=== PATIENT | male | born 1975 | race Caucasian/White ===

== ENCOUNTER 2023-06-11 16:52 | Observation (INO) ==
[2023-06-11 17:41] LABS: Basophils # (auto) 0.05 K/uL (0.00-0.20); Basophils % (auto) 0.3 %; Eosinophils # (auto) 0.26 K/uL (0.00-0.50); Eosinophils % (auto) 1.6 %; Hematocrit (blood only) 51.6 % (42.0-52.0); Hemoglobin 17.5 g/dl (14.0-18.0); Immature Granulocytes # (auto) 0.11 K/uL (0.01-0.20); Immature Granulocytes % (auto) 0.7 %; Lymphocytes # (auto) 2.31 K/uL (1.20-3.40); Lymphocytes % (auto) 14.6 %; Mean Corpuscular Hemoglobin 30.4 pg (25.0-34.0); Mean Corpuscular Hgb Conc 33.9 g/dL (32.0-36.0); Mean Corpuscular Volume 89.6 fL (80.0-100.0); Monocytes # (auto) 1.62 K/uL (0.11-0.59); Monocytes % (auto) 10.2 %; Neutrophils # (auto) 11.49 K/uL (1.40-6.50); Neutrophils % (auto) 72.6 %; Platelet Count 355 K/uL (130-400); RDW Coefficient of Variation 12.2 % (11.5-14.5); RDW Standard Deviation 40.1 fL (36.4-46.3); Red Blood Count 5.76 M/uL (4.70-6.10); White Blood Count 15.84 K/ul (4.8-10.8)
[2023-06-11 17:54] LABS: Albumin Globulin Ratio 1.5 (0.9-2); Albumin Level 4.8 gm/dl (3.4-5.0); BUN Creatinine Ratio 7.4 (10-20); Est GFR (African American) 82.7 ml/min; Est GFR (Non-African American) 71.4 ml/min; Globulin 3.1 gm/dl (2.5-4.0); Potassium 3.9 mmol/L (3.5-5.1); Total Protein 7.9 gm/dl (6.0-8.3)
--- NOTE | 2023-06-11 18:15 | Emergency Department Note ---
Impression & Plan Acute cholecystitis ED Provider Note CHIEF COMPLAINT: Right upper abdominal/flank pain HISTORY OF PRESENTING ILLNESS: This is a 48-year-old male who presents to the emergency department by private vehicle with complaint of right upper abdominal and flank pain that started yesterday and has been getting worse today. The patient states that he developed nausea and vomiting and generalized upper abdominal pain 2 days ago. He states that he was having "violent vomiting" and thinks he may have pulled a muscle. He notes that his mother is a nurse and told him he should get checked. He states that the pain has been sharp and occasionally crampy, constant, worse with certain movements and taking in a deep breath, and he rates the pain 4/10. He has not had any vomiting since yesterday morning, and his nausea is improved as well, but he reports decreased appetite and has not eaten any solid food since 4 PM Sunday. He denies any known sick contacts with similar symptoms. He has not had any fevers or chills. He denies any alcohol or marijuana use. He denies any chest pain, chest tightness, shortness of breath, back pain, dizziness or syncope, hemoptysis, diarrhea or constipation, urinary complaints, or unusual rash. REVIEW OF SYSTEMS: A complete 10 point review of systems was reviewed with the patient with pertinent positives and negatives as per history of present illness. All else were negative. PAST MEDICAL HISTORY: No significant past medical or surgical history SOCIAL HISTORY: Lives at home, denies tobacco use ALLERGIES: Reviewed in chart and with the patient PHYSICAL EXAM: CONSTITUTIONAL: Pleasant and cooperative. Nontoxic-appearing and in no acute distress. Well appearing and well nourished. HEENT: Normocephalic, atraumatic. NECK: Supple, full active range of motion without discomfort. RESPIRATORY: Clear to auscultation bilaterally with no wheezing, crackles, rhonchi or stridor. Equal expansion bilaterally. CHEST WALL: Tenderness to palpation in the right anterior lower chest wall/rib cage, reproduces complaint. No erythema, ecchymosis, swelling, or palpable crepitus. CARDIOVASCULAR: Regular rate and rhythm with no murmurs, rubs or gallops. Normal peripheral perfusion. No edema. GASTROINTESTINAL: Tender to palpation in the right upper quadrant, no rebound tenderness or guarding. Abdomen is otherwise nontender, soft and nondistended. No palpable masses or HSM. Bowel sounds present in all quadrants. No CVA tenderness bilaterally. MUSCULOSKELETAL: Full range of motion of all joints without discomfort. INTEGUMENTARY: No rash or other significant dermatologic conditions noted. NEUROLOGIC: Alert and oriented X 4 with normal affect. Normal speech. Normal gait observed. ED COURSE AND MEDICAL DECISION MAKING: CC: Patient presenting with complaint of right upper abdominal/flank pain DIFFERENTIAL DIAGNOSIS: Includes, but not limited to cholecystitis, cholelithiasis, choledocholithiasis, gastroenteritis, gastritis, GERD, peptic ulcer disease, pancreatitis, small bowel obstruction, ureteral stone, hernia, constipation, acute cardiac syndrome, PE, pneumonia, among others. INTERPRETATION OF LABS: Leukocytosis, no anemia, normal platelets, no significant electrolyte abnormalities, normal renal function, normal liver enzymes and lipase. Troponin negative. Elevated D-dimer. UA negative. EKG: Indication was abdominal pain. Shows sinus tachycardia with a rate of 129 bpm, normal intervals, no ST elevation or depression, no ectopy by my interpretation. No previous EKGs available for comparison. MEDICATION RECONCILIATION: I attest that I have personally reviewed the patient's current medication list. INITIAL VITAL SIGNS REVIEW: I reviewed the patient's initial vital signs and interpret them as follows: T: Afebrile; BP: Mildly hypertensive; HR: Mildly tachycardic; RR: Within normal limits; Pulse Ox: Within normal limits on room air. MDM SUMMARY: Initial orders were placed by nursing staff under critical pathway protocols. Patient was evaluated at bedside, history and physical exam performed. He is alert and oriented, in no acute distress, resting calmly in the stretcher. He is afebrile and nontoxic-appearing. He does have tenderness to palpation in the right upper quadrant as well as in the right chest wall. No acute abdomen. Additional orders were placed IV fluid bolus for hydration, chest x-ray, EKG, troponin, and a D-dimer as the patient is noted to be tachycardic and seems to be pleuritic component to his flank pain. The patient declined anything for pain. D-dimer was noted to be elevated. Additional orders placed for CT imaging, CTA of the chest and CT abdomen/pelvis with IV contrast. Cardiac monitoring: An order was placed for continuous cardiac monitoring. The monitor shows a rate of 90 bpm with normal sinus rhythm. Labs and imaging reviewed, labs notable for leukocytosis, normal liver enzymes and lipase. Troponin was negative. Elevated D-dimer. UA negative. Chest x-ray demonstrates cardiomegaly and bibasilar opacities suggestive of atelectasis. CT imaging of the chest showed no acute pulmonary embolism, focal infiltrate, pleural effusion, or pneumothorax. CT abdomen/pelvis showed distended gallbladder with pericholecystic edema consistent with acute cholecystitis. I spoke on the phone with Dr. Baxter, general surgery, who evaluated the patient and will admit. IV Zosyn ordered per Dr. Baxter's request. Patient reassessed throughout ED stay, he has remained hemodynamically stable, afebrile, and tachycardia resolved after IV fluids. His pain remains tolerable without intervention. The patient was updated on all results and plan for admission, all questions were answered to the best of my ability and the patient was agreeable to this plan Patient was stable at the time of admission. Patient discussed with Dr. Brooks, ED attending, who agrees with my assessment, plan, and disposition. The chart was completed utilizing [employer] Speech voice recognition software. Grammatical errors, random word insertions, pronoun errors, and incomplete sentences are an occasional consequence of this system due to software limitations, ambient noise, and hardware issues. Any formal questions or concerns about the content, text, or information contained within the body of this dictation should be directly addressed to the nurse practitioner for clarification. Past Med/Surg History Social History Smoking Status: Never smoker Do You Dip or Chew Tobacco: No; Hx Alcohol Use: No Hx Substance Use: No Preferred Language: Bengali Communication Ability: Effective College Counselor Required: No Beliefs That Will Affect Care: None Current Living Situation: Significant Other Feels Safe at Home: Yes Safety Concerns: Feels Safe At This Time Assistive Devices: Contacts and Glasses Allergies Allergies Allergy/AdvReac Type Severity Reaction Status Date / Time erythromycin base AdvReac Intermediate Diarrhea Verified 06/11/23 18:33 Home Meds Home Medications Medication Instructions Recorded Confirmed Tylenol See Rx Instructions .Route 06/11/23 06/11/23 .COMPLEX PRN Pain Results & Data (ED) Vital Signs Vital Signs - 24 hr 06/11/23 17:11 06/11/23 18:05 06/11/23 18:33 Temperature 36.9 C Temperature Source Temporal Artery Scan Pulse Rate 118 H 102 H 94 H Pulse Rate [Right Finger] Respiratory Rate 18 23 Respiratory Effort / Characteristics Non-Labored Spontaneous Respiratory Depth Normal Respiratory Pattern Regular Blood Pressure 143/98 H 138/98 Blood Pressure [Right Arm] Blood Pressure Mean 113 111 Blood Pressure Mean [Right Arm] Blood Pressure Position Sitting Blood Pressure Position [Right Arm] Pulse Oximetry 95 94 Oxygen Delivery Method Room Air Sepsis Recent Fever Within 48 Hours No Sepsis New/Unexplained Change in Mental Status N/A Sepsis Action Taken by Nursing No Action Required 06/11/23 18:53 06/11/23 20:00 Temperature Temperature Source Pulse Rate Pulse Rate [Right Finger] 101 H 96 H Respiratory Rate 20 20 Respiratory Effort / Characteristics Respiratory Depth Respiratory Pattern Blood Pressure Blood Pressure [Right Arm] 139/78 130/85 Blood Pressure Mean Blood Pressure Mean [Right Arm] 98 100 Blood Pressure Position Blood Pressure Position [Right Arm] Sitting Pulse Oximetry 97 97 Oxygen Delivery Method Room Air Room Air Sepsis Recent Fever Within 48 Hours Sepsis New/Unexplained Change in Mental Status Sepsis Action Taken by Nursing Laboratory Data 06/11/23 17:18 06/11/23 17:18 Lab Results 06/11/23 06/11/23 Range/Units 17:18 19:31 WBC 15.84 H (4.8-10.8) K/ul RBC 5.76 (4.70-6.10) M/uL Hgb 17.5 (14.0-18.0) g/dl Hct 51.6 (42.0-52.0) % MCV 89.6 (80.0-100.0) fL MCH 30.4 (25.0-34.0) pg MCHC 33.9 (32.0-36.0) g/dL RDW Std Deviation 40.1 (36.4-46.3) fL RDW Coeff of [place]acia 12.2 (11.5-14.5) % Plt Count 355 (130-400) K/uL MPV 10.0 (9.4-12.4) fL Immature Gran % (Auto) 0.7 % Neut % (Auto) 72.6 % Lymph % (Auto) 14.6 % [place] % (Auto) 10.2 % Eos % (Auto) 1.6 % Baso % (Auto) 0.3 % Neut # (Auto) 11.49 H (1.40-6.50) K/uL Lymph # (Auto) 2.31 (1.20-3.40) K/uL [place] # (Auto) 1.62 H (0.11-0.59) K/uL Eos # (Auto) 0.26 (0.00-0.50) K/uL Baso # (Auto) 0.05 (0.00-0.20) K/uL Immature Gran # (Auto) 0.11 (0.01-0.20) K/uL D-Dimer 850 H* (0-500) ug/L FEU Sodium 139 (136-145) mmol/L Potassium 3.9 (3.5-5.1) mmol/L Chloride 101 (98-107) mmol/L Carbon Dioxide 29 (21-32) mmol/L Anion Gap 9 (3-11) BUN 9 (6-23) mg/dl Creatinine 1.21 (0.6-1.4) mg/dl Est Cr Clr Drug Dosing 88.0 ml/min Est GFR ( Amer) 82.7 ml/min Est GFR (Non-Af Amer) 71.4 ml/min BUN/Creatinine Ratio 7.4 L (10-20) Glucose 108 H (70-99(Fasting)) mg/dl Calcium 10.0 (8.6-10.3) mg/dl Total Bilirubin 1.0 (0.2-1.0) mg/dl AST 15 (13-39) U/L ALT 19 (7-52) U/L Alkaline Phosphatase 65 (34-104) U/L Troponin I High Sens 9.1 (0-20) pg/ml Total Protein 7.9 (6.0-8.3) gm/dl Albumin 4.8 (3.4-5.0) gm/dl Globulin 3.1 (2.5-4.0) gm/dl Albumin/Globulin Ratio 1.5 (0.9-2) Lipase 21 (11-82) U/L Urine Color Yellow Urine Appearance Clear (Clear) Urine pH 6.5 (4.5-7.5) Ur Specific [place] 1.011 (1.000-1.030) Urine Protein Negative (Negative) Urine Glucose (UA) Negative (Negative) Urine Ketones Negative (Negative) Urine Blood Negative (Negative) Urine Nitrite Negative (Negative) Urine Bilirubin Negative (Negative) Urine Urobilinogen Negative (Negative) Ur Leukocyte Esterase Negative (Negative) Administered Medications Lactated Ringer's (Lr) 1,000 mls @ 100 mls/hr IV .Q10H GERRY Stop: 07/11/23 23:06 Last Infusion: 06/12/23 00:14 Dose: 100 mls/hr Documented By: Infusion: 06/11/23 23:59 Dose: 0 mls/hr Documented By: Admin: 06/11/23 23:22 Dose: 100 mls/hr Documented By: MARCI Discontinued Medications Sodium Chloride (Nss) 1,000 mls @ 999 mls/hr IV .Q1H1M ONE Stop: 06/11/23 19:19 Last Infusion: 06/11/23 19:50 Dose: Infused Documented By: Admin: 06/11/23 18:33 Dose: 999 mls/hr Documented By: CPB Piperacillin Sod/Tazobactam (Sod 4.5 gm/ Dextrose) 100 mls @ 200 mls/hr IV ONE ONE; Protocol Stop: 06/11/23 23:44 Last Infusion: 06/12/23 00:35 Dose: Infused Documented By: Admin: 06/12/23 00:01 Dose: 200 mls/hr Documented By: MARCI Ioversol (Optiray 320 125ml) 117 ml IV ONCE ONE Stop: 06/11/23 20:03 Last Admin: 06/11/23 20:02 Dose: 117 ml Documented By: FERDINAND Imaging Data Radiologist's Impression: Chest X-Ray 06/11/23 18:27 XR chest 1V portable HISTORY: 48 years-old Male right rib pain acute right-sided rib pain COMPARISON: None TECHNIQUE: AP view the chest FINDINGS: Cardiac silhouette is enlarged. Hypoinflation. Right hemidiaphragmatic elevation. No pneumothorax. Bibasilar consolidation with blunting of the costophrenic angles. IMPRESSION: 1. Cardiomegaly with hypoinflation. 2. Right hemidiaphragm elevation with bibasilar opacities suggestive of atelectasis. Pneumonitis could appear similarly. ACT 112: Negative or not required by law. The above report was generated using voice recognition software. It may contain grammatical, syntax or spelling errors. Electronically signed by: Isai Benitez M.D. 06/11/2023 7:07 PM Abdomen/Pelvis CT 06/11/23 18:45 Exam(s): CT ABDOMEN + PELVIS With Contrast IV Amt: 117ML OPTIRAY 320 EXAM: CT Abdomen and Pelvis With Intravenous Contrast CLINICAL HISTORY: Reason for exam: right flank pain. TECHNIQUE: Axial computed tomography images of the abdomen and pelvis with intravenous contrast. CTDI is 64.54 mGy and DLP is 2406.07 mGy-cm. Automated exposure control was utilized for the study. A dose lowering technique was utilized adhering to the principles of ALARA. CONTRAST: Patient received 117ML OPTIRAY 320 of IV contrast COMPARISON: No relevant prior studies available. FINDINGS: Lung bases: Atelectasis at the lung bases. ABDOMEN: Liver: Hepatic steatosis. Gallbladder and bile ducts: Distended gallbladder with pericholecystic edema, concerning for acute cholecystitis. Surgical evaluation recommended. No ductal dilation. Pancreas: Unremarkable. No mass. No ductal dilation. Spleen: Unremarkable. No splenomegaly. Adrenals: Unremarkable. No mass. Kidneys and ureters: Unremarkable. No solid mass. No hydronephrosis. Stomach and bowel: Unremarkable. No obstruction. No mucosal thickening. PELVIS: Appendix: No findings to suggest acute appendicitis. Bladder: Unremarkable. No mass. Reproductive: Unremarkable as visualized. ABDOMEN and PELVIS: Intraperitoneal space: Unremarkable. No free air. No significant fluid collection. Bones/joints: No acute fracture. No dislocation. Soft tissues: Small fat-containing umbilical hernia. Vasculature: Unremarkable. No abdominal aortic aneurysm. Lymph nodes: Unremarkable. No enlarged lymph nodes. IMPRESSION: Distended gallbladder with pericholecystic edema, concerning for acute cholecystitis. Surgical evaluation recommended. Electronically signed by: Marcus Rosas MD 06/11/23 20:24 PM Chest CTA 06/11/23 18:45 Exam(s): CTA CHEST IV Amt: 117ML OPTIRAY 320 EXAM: CT Angiography Chest With Intravenous Contrast CLINICAL HISTORY: Reason for exam: right flank/chest pain, + dimer. TECHNIQUE: Axial computed tomographic angiography images of the chest with intravenous contrast. CTDI is 64.54 mGy and DLP is 2406.07 mGy-cm. Automated exposure control was utilized for the study. A dose lowering technique was utilized adhering to the principles of ALARA. MIP reconstructed images were created and reviewed. COMPARISON: No relevant prior studies available. FINDINGS: Pulmonary arteries: Unremarkable. No acute pulmonary embolism. Aorta: No acute findings. No thoracic aortic aneurysm. Lungs: Atelectasis at the lung bases. No mass. Pleural space: Unremarkable. No focal infiltrate, pleural effusion, or pneumothorax. Heart: Unremarkable. No cardiomegaly. No significant pericardial effusion. No evidence of RV dysfunction. Bones/joints: No acute fracture. No dislocation. Soft tissues: Unremarkable. Lymph nodes: Unremarkable. No enlarged lymph nodes. Upper abdomen: Elevated RIGHT hemidiaphragm. IMPRESSION: 1. No acute pulmonary embolism. 2. No focal infiltrate, pleural effusion, or pneumothorax. Electronically signed by: Marcus Rosas MD 06/11/23 20:17 PM Discharge Plan Visit Data Chief Complaint: Abdominal Pain Stated Complaint: SHARP ABD PAIN, VOMITING, RT FLANK PAIN ED Provider: Mathew Brooks ED Midlevel Provider: Kaitlin Peterson Discharge Problem: Acute cholecystitis Patient Disposition: Admitted As Inpatient Discharge Instructions Interventions: ED Discharge Assessment Last Done: 06/11/23 22:54
[2023-06-11] MEDS: SODIUM CHLORIDE 0.9% 1,000 ML IV ONE (18:33)
[2023-06-11 18:46] LABS: D Dimer 850 ug/L FEU (0-500)
[2023-06-11 18:55] LABS: Troponin I High Sensitivity 9.1 pg/ml (0-20)
--- NOTE | 2023-06-11 19:08 | XRay Report ---
XR chest 1V portable HISTORY: 48 years-old Male right rib pain acute right-sided rib pain COMPARISON: None TECHNIQUE: AP view the chest FINDINGS: Cardiac silhouette is enlarged. Hypoinflation. Right hemidiaphragmatic elevation. No pneumothorax. Bi basilar consolidation with blunting of the costophrenic angles. IMPRESSION: 1. Cardiomegaly with hypoinflation. 2. Right hemidiaphragm elevation with bibasilar opacities suggestive of atelectasis. Pneumonitis coul d appear similarly. ACT 112: Negative or not required by law. The above report was generated using voice recognition software. It may contain grammatical, syntax o r spelling errors. Electronically signed by: Isai Benitez M.D. 06/11/2023 7:07 PM
[2023-06-11 19:49] LABS: Appearance Urine Clear (Clear); Bilirubin Urine Negative (Negative); Blood Urine Negative (Negative); Color Urine Yellow; Glucose Urine UA Negative (Negative); Ketones Urine Negative (Negative); Leukocyte Esterase Urine Negative (Negative); Nitrite Urine Negative (Negative); Protein Urine Negative (Negative); Specific Gravity Urine 1.011 (1.000-1.030); Urobilinogen Urine Negative (Negative); pH Urine 6.5 (4.5-7.5)
[2023-06-11] MEDS: OPTIRAY 320 125ml IV ONE (20:02)
--- NOTE | 2023-06-11 20:18 | CT Scan Report ---
Exam(s): CTA CHEST IV Amt: 117ML OPTIRAY 320 EXAM: CT Angiography Chest With Intravenous Contrast CLINICAL HISTORY: Reason for exam: right flank/chest pain, + dimer. TECHNIQUE: Axial computed tomographic angiography images of the chest with intravenous contrast. CTDI is 64.54 mGy and DLP is 2406.07 mGy-cm. Automated exposure control was utilized for the study. A dose lowering technique was utilized adhering to the principles of ALARA. MIP reconstructed images were created and reviewed. COMPARISON: No relevant prior studies available. FINDINGS: Pulmonary arteries: Unremarkable. No acute pulmonary embolism. Aorta: No acute findings. No thoracic aortic aneurysm. Lungs: Atelectasis at the lung bases. No mass. Pleural space: Unremarkable. No focal infiltrate, pleural effusion, or pneumothorax. Heart: Unremarkable. No cardiomegaly. No significant pericardial effusion. No evidence of RV dysfunction. Bones/joints: No acute fracture. No dislocation. Soft tissues: Unremarkable. Lymph nodes: Unremarkable. No enlarged lymph nodes. Upper abdomen: Elevated RIGHT hemidiaphragm. IMPRESSION: 1. No acute pulmonary embolism. 2. No focal infiltrate, pleural effusion, or pneumothorax. Electronically signed by: Marcus Rosas MD 06/11/23 20:17 PM
--- NOTE | 2023-06-11 20:25 | CT Scan Report ---
Exam(s): CT ABDOMEN + PELVIS With Contrast IV Amt: 117ML OPTIRAY 320 EXAM: CT Abdomen and Pelvis With Intravenous Contrast CLINICAL HISTORY: Reason for exam: right flank pain. TECHNIQUE: Axial computed tomography images of the abdomen and pelvis with intravenous contrast. CTDI is 64.54 mGy and DLP is 2406.07 mGy-cm. Automated exposure control was utilized for the study. A dose lowering technique was utilized adhering to the principles of ALARA. CONTRAST: Patient received 117ML OPTIRAY 320 of IV contrast COMPARISON: No relevant prior studies available. FINDINGS: Lung bases: Atelectasis at the lung bases. ABDOMEN: Liver: Hepatic steatosis. Gallbladder and bile ducts: Distended gallbladder with pericholecystic edema, concerning for acute cholecystitis. Surgical evaluation recommended. No ductal dilation. Pancreas: Unremarkable. No mass. No ductal dilation. Spleen: Unremarkable. No splenomegaly. Adrenals: Unremarkable. No mass. Kidneys and ureters: Unremarkable. No solid mass. No hydronephrosis. Stomach and bowel: Unremarkable. No obstruction. No mucosal thickening. PELVIS: Appendix: No findings to suggest acute appendicitis. Bladder: Unremarkable. No mass. Reproductive: Unremarkable as visualized. ABDOMEN and PELVIS: Intraperitoneal space: Unremarkable. No free air. No significant fluid collection. Bones/joints: No acute fracture. No dislocation. Soft tissues: Small fat-containing umbilical hernia. Vasculature: Unremarkable. No abdominal aortic aneurysm. Lymph nodes: Unremarkable. No enlarged lymph nodes. IMPRESSION: Distended gallbladder with pericholecystic edema, concerning for acute cholecystitis. Surgical evaluation recommended. Electronically signed by: Marcus Rosas MD 06/11/23 20:24 PM
--- NOTE | 2023-06-11 22:23 | Surgery Consultation ---
Date of Consultation June 11, 2023 Assessment & Plan (1) Acute cholecystitis: Assessment: Patient is a 48 years old gentleman who presented to ED with a 2-day history right upper quadrant pain with some nausea and vomiting. The patient feels better no significant abdominal pain. Nausea no vomiting or today. WBC 16,000. CT scan diagnosis of acute cholecystitis. Plan: No emergency surgical indication now . admitted to the hospital. IV fluid, NPO, Iv antibiotic, repeat labs in the morning, U/S study gallbladder tomorrow morning. will Follow up. Patient and patient mom agreed with the Plan. I answered all questions. D/W ER attending. History of Present Illness Reason for Consultation: Acute cholecystitis Requesting Physician: kush Peterson CRNP History of Present Illness CC: Right upper quadrant pain HPI: Patient is a 48 years old gentleman who presented to ED with a 2-day history right upper quadrant pain with some nausea and vomiting. The abdominal pain started on Sunday. the pain was sharp on upper abdomen with nausea and vomiting. 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 pt denies vomiting blood. no fever or chills, no diarrhea, no chest pain. now pt feels much better. no significant abdominal pain now. WBC 16,000, CT scan-diagnosis of acute cholecystitis. Otherwise the patient is a healthy and no significant past medical history. Allergies Allergy/AdvReac Type Severity Reaction Status Date / Time erythromycin base AdvReac Intermediate Diarrhea Verified 06/11/23 18:33 Home Medications Medication Instructions Recorded Confirmed Type Tylenol See Rx Instructions .Route 06/11/23 06/11/23 History .COMPLEX PRN Pain Patient History Social History Smoking Status: Never smoker Feels Safe at Home: Yes Review of Systems Constitutional: as per Subjective / HPI Eyes: as per Subjective / HPI Respiratory: as per Subjective / HPI Cardiovascular: as per Subjective / HPI Gastrointestinal: as per Subjective / HPI Genitourinary: + as per Subjective / HPI Neurologic: as per Subjective / HPI Psychiatric: as per Subjective / HPI Endocrine: as per Subjective / HPI Hematologic / Lymphatic: as per Subjective / HPI Physical Exam Constitutional: WD/WN, vitals as above no distress Eyes: PERRL, conjunctivae normal, anicteric sclerae Neck: trachea midline, no thyromegaly Respiratory: normal respiratory effort, lungs clear to auscultation Cardiovascular: RRR, no murmur, no edema Gastrointestinal (Abdomen): soft, no significant tenderness at abdomen, no rebound pain, no distend, BS +. small umbilical hernia, no tenderness, reducible. Musculoskeletal: no cyanosis or clubbing, extremities motor strength 5/5 Neurologic: patellar DTR's 2+ bilat, sensation intact Psychiatric: A+Ox3, euthymic affect Results & Data Vital Signs (Past 12 Hours) Vital Signs Temp Pulse Pulse Resp BP BP Pulse Ox 06/11/23 20:00 96 H 20 130/85 97 06/11/23 18:53 101 H 20 139/78 97 06/11/23 18:33 94 H 06/11/23 18:05 102 H 23 138/98 94 06/11/23 17:11 36.9 C 118 H 18 143/98 H 95 O2 Del Method 06/11/23 20:00 Room Air 06/11/23 18:53 Room Air 06/11/23 18:33 06/11/23 18:05 06/11/23 17:11 Room Air Laboratory Results Lab Results 06/11/23 06/11/23 Range/Units 17:18 19:31 WBC 15.84 H (4.8-10.8) K/ul RBC 5.76 (4.70-6.10) M/uL Hgb 17.5 (14.0-18.0) g/dl Hct 51.6 (42.0-52.0) % MCV 89.6 (80.0-100.0) fL MCH 30.4 (25.0-34.0) pg MCHC 33.9 (32.0-36.0) g/dL RDW Std Deviation 40.1 (36.4-46.3) fL RDW Coeff of Gracia 12.2 (11.5-14.5) % Plt Count 355 (130-400) K/uL MPV 10.0 (9.4-12.4) fL Immature Gran % (Auto) 0.7 % Neut % (Auto) 72.6 % Lymph % (Auto) 14.6 % [place] % (Auto) 10.2 % Eos % (Auto) 1.6 % Baso % (Auto) 0.3 % Neut # (Auto) 11.49 H (1.40-6.50) K/uL Lymph # (Auto) 2.31 (1.20-3.40) K/uL [place] # (Auto) 1.62 H (0.11-0.59) K/uL Eos # (Auto) 0.26 (0.00-0.50) K/uL Baso # (Auto) 0.05 (0.00-0.20) K/uL Immature Gran # (Auto) 0.11 (0.01-0.20) K/uL D-Dimer 850 H* (0-500) ug/L FEU Sodium 139 (136-145) mmol/L Potassium 3.9 (3.5-5.1) mmol/L Chloride 101 (98-107) mmol/L Carbon Dioxide 29 (21-32) mmol/L Anion Gap 9 (3-11) BUN 9 (6-23) mg/dl Creatinine 1.21 (0.6-1.4) mg/dl Est Cr Clr Drug Dosing 88.0 ml/min Est GFR ( Amer) 82.7 ml/min Est GFR (Non-Af Amer) 71.4 ml/min BUN/Creatinine Ratio 7.4 L (10-20) Glucose 108 H (70-99(Fasting)) mg/dl Calcium 10.0 (8.6-10.3) mg/dl Total Bilirubin 1.0 (0.2-1.0) mg/dl AST 15 (13-39) U/L ALT 19 (7-52) U/L Alkaline Phosphatase 65 (34-104) U/L Troponin I High Sens 9.1 (0-20) pg/ml Total Protein 7.9 (6.0-8.3) gm/dl Albumin 4.8 (3.4-5.0) gm/dl Globulin 3.1 (2.5-4.0) gm/dl Albumin/Globulin Ratio 1.5 (0.9-2) Lipase 21 (11-82) U/L Urine Color Yellow Urine Appearance Clear (Clear) Urine pH 6.5 (4.5-7.5) Ur Specific [place] 1.011 (1.000-1.030) Urine Protein Negative (Negative) Urine Glucose (UA) Negative (Negative) Urine Ketones Negative (Negative) Urine Blood Negative (Negative) Urine Nitrite Negative (Negative) Urine Bilirubin Negative (Negative) Urine Urobilinogen Negative (Negative) Ur Leukocyte Esterase Negative (Negative) Diagnostic Findings Exam(s): CT ABDOMEN + PELVIS With Contrast IV Amt: 117ML OPTIRAY 320 EXAM: CT Abdomen and Pelvis With Intravenous Contrast CLINICAL HISTORY: Reason for exam: right flank pain. TECHNIQUE: Axial computed tomography images of the abdomen and pelvis with intravenous contrast. CTDI is 64.54 mGy and DLP is 2406.07 mGy-cm. Automated exposure control was utilized for the study. A dose lowering technique was utilized adhering to the principles of ALARA. CONTRAST: Patient received 117ML OPTIRAY 320 of IV contrast COMPARISON: No relevant prior studies available. FINDINGS: Lung bases: Atelectasis at the lung bases. ABDOMEN: Liver: Hepatic steatosis. Gallbladder and bile ducts: Distended gallbladder with pericholecystic edema, concerning for acute cholecystitis. Surgical evaluation recommended. No ductal dilation. Pancreas: Unremarkable. No mass. No ductal dilation. Spleen: Unremarkable. No splenomegaly. Adrenals: Unremarkable. No mass. Kidneys and ureters: Unremarkable. No solid mass. No hydronephrosis. Stomach and bowel: Unremarkable. No obstruction. No mucosal thickening. PELVIS: Appendix: No findings to suggest acute appendicitis. Bladder: Unremarkable. No mass. Reproductive: Unremarkable as visualized. ABDOMEN and PELVIS: Intraperitoneal space: Unremarkable. No free air. No significant fluid collection. Bones/joints: No acute fracture. No dislocation. Soft tissues: Small fat-containing umbilical hernia. Vasculature: Unremarkable. No abdominal aortic aneurysm. Lymph nodes: Unremarkable. No enlarged lymph nodes. IMPRESSION: Distended gallbladder with pericholecystic edema, concerning for acute cholecystitis. Surgical evaluation recommended. Electronically signed by: Marcus Rosas MD 06/11/23 20:24 PM Exam(s): CTA CHEST IV Amt: 117ML OPTIRAY 320 EXAM: CT Angiography Chest With Intravenous Contrast CLINICAL HISTORY: Reason for exam: right flank/chest pain, + dimer. TECHNIQUE: Axial computed tomographic angiography images of the chest with intravenous contrast. CTDI is 64.54 mGy and DLP is 2406.07 mGy-cm. Automated exposure control was utilized for the study. A dose lowering technique was utilized adhering to the principles of ALARA. MIP reconstructed images were created and reviewed. COMPARISON: No relevant prior studies available. FINDINGS: Pulmonary arteries: Unremarkable. No acute pulmonary embolism. Aorta: No acute findings. No thoracic aortic aneurysm. Lungs: Atelectasis at the lung bases. No mass. Pleural space: Unremarkable. No focal infiltrate, pleural effusion, or pneumothorax. Heart: Unremarkable. No cardiomegaly. No significant pericardial effusion. No evidence of RV dysfunction. Bones/joints: No acute fracture. No dislocation. Soft tissues: Unremarkable. Lymph nodes: Unremarkable. No enlarged lymph nodes. Upper abdomen: Elevated RIGHT hemidiaphragm. IMPRESSION: 1. No acute pulmonary embolism. 2. No focal infiltrate, pleural effusion, or pneumothorax. Electronically signed by: Marcus Rosas MD 06/11/23 20:17 PM XR chest 1V portable HISTORY: 48 years-old Male right rib pain acute right-sided rib pain COMPARISON: None TECHNIQUE: AP view the chest FINDINGS: Cardiac silhouette is enlarged. Hypoinflation. Right hemidiaphragmatic elevation. No pneumothorax. Bibasilar consolidation with blunting of the costophrenic angles. IMPRESSION: 1. Cardiomegaly with hypoinflation. 2. Right hemidiaphragm elevation with bibasilar opacities suggestive of atelectasis. Pneumonitis could appear similarly. ACT 112: Negative or not required by law. The above report was generated using voice recognition software. It may contain grammatical, syntax or spelling errors. Electronically signed by: Isai Benitez M.D. 06/11/2023 7:07 PM
[2023-06-11] MEDS ORDERED: HYDROmorphone INJ 0.5 MG/0.5 ML SYR IV PRN (23:07)
[2023-06-11] MEDS ORDERED: ACETAMINOPHEN PRN (23:07)
[2023-06-11] MEDS ORDERED: oxyCODONE/ACETAMINOPHEN 5mg/325mg TAB PO PRN (23:07)
[2023-06-11] MEDS: LACTATED RINGER'S 1,000 ML IV SCH (23:22)
[2023-06-12] MEDS: PIPERACILLIN/TAZOBACTAM 4.5 GM in DEXTROSE 5% MINI-B 100 ML IV ONE (00:01)
[2023-06-12] MEDS: PIPERACILLIN/TAZOBACTAM 4.5 GM in DEXTROSE 5% MINI-B 100 ML IV SCH (05:45)
[2023-06-12 06:12] LABS: Basophils # (auto) 0.06 K/uL (0.00-0.20); Basophils % (auto) 0.5 %; Eosinophils # (auto) 0.27 K/uL (0.00-0.50); Eosinophils % (auto) 2.1 %; Hematocrit (blood only) 43.3 % (42.0-52.0); Hemoglobin 14.9 g/dl (14.0-18.0); Immature Granulocytes # (auto) 0.08 K/uL (0.01-0.20); Immature Granulocytes % (auto) 0.6 %; Lymphocytes # (auto) 1.65 K/uL (1.20-3.40); Lymphocytes % (auto) 12.6 %; Mean Corpuscular Hemoglobin 30.2 pg (25.0-34.0); Mean Corpuscular Hgb Conc 34.4 g/dL (32.0-36.0); Mean Corpuscular Volume 87.8 fL (80.0-100.0); Mean Platelet Volume 9.6 fL (9.4-12.4); Monocytes # (auto) 1.27 K/uL (0.11-0.59); Monocytes % (auto) 9.7 %; Neutrophils # (auto) 9.72 K/uL (1.40-6.50); Neutrophils % (auto) 74.5 %; Platelet Count 254 K/uL (130-400); RDW Coefficient of Variation 12.1 % (11.5-14.5); RDW Standard Deviation 39.3 fL (36.4-46.3); Red Blood Count 4.93 M/uL (4.70-6.10); White Blood Count 13.05 K/ul (4.8-10.8)
[2023-06-12 06:29] LABS: Albumin Globulin Ratio 1.6 (0.9-2); Albumin Level 3.9 gm/dl (3.4-5.0); BUN Creatinine Ratio 11.3 (10-20); Bilirubin,Total 0.9 mg/dl (0.2-1.0); Calcium 8.6 mg/dl (8.6-10.3); Creatinine Clr Calc Pharmacy 109.6 ml/min; Est GFR (African American) 108.1 ml/min; Est GFR (Non-African American) 93.2 ml/min; Globulin 2.5 gm/dl (2.5-4.0); Potassium 3.9 mmol/L (3.5-5.1); Total Protein 6.4 gm/dl (6.0-8.3)
--- NOTE | 2023-06-12 08:19 | Electrocardiogram Report ---
Test Reason : Blood Pressure : / mmHG Vent. Rate : 129 BPM Atrial Rate : 129 BPM P-R Int : 154 ms QRS Dur : 068 ms QT Int : 296 ms P-R-T Axes : 025 -23 029 degrees QTc Int : 433 ms Sinus tachycardia Poor R wave progression, consider anterior ME vs. lead placement vs. LVH Abnormal ECG No previous ECGs available Confirmed by Blayne Olsen ([id number]) on 06/12/2023 8:18:42 AM Referred By: REFERRED SELF Confirmed By:Blayne Olsen
[2023-06-12] MEDS ORDERED: ONDANSETRON INJ 2 MG/ML 2 ML VIAL IV PRN ×2 (09:02→15:32)
--- NOTE | 2023-06-12 09:34 | Ultrasound Report ---
ABDOMINAL ULTRASOUND, RIGHT UPPER QUADRANT HISTORY: Acute quadrant abdominal pain RUQ pain, to R/O acute cholecystitis. COMPARISON: CT 06/11/2023 FINDINGS: Limited exam secondary to obscuring bowel gas. Pancreas: The pancreas is partially obscured by bowel gas. Liver: Unremarkable. Gallbladder: Cholelithiasis with stones measuring up to 1.1 cm. Probable trace layering sludge. Borde rline gallbladder wall thickening measuring up to 3 mm. Mild pericholecystic edema. The sonographic M urphy sign was reported as negative. CBD: 0.5 cm. Right kidney: No hydronephrosis. IMPRESSION: 1. Cholelithiasis with mild gallbladder wall thickening and pericholecystic edema is suspicious for a cute cholecystitis. The sonographic Watson's sign however was reported as negative. 2. No biliary ductal dilation. ACT 112: Negative or not required by law. Electronically signed by: Isai Benitez M.D. 06/12/2023 9:33 AM
--- NOTE | 2023-06-12 10:31 | Surgery Progress Note ---
Date of Service June 12, 2023 Assessment & Plan (1) Acute cholecystitis: Plan: 48 year-old male with 2.5 day history of upper abdominal pain with nausea and vomiting. no fevers or chills. CT scan with acute cholecystitis, wbc 15.8k now 13k. Ultrasound with cholelihtiasis and gallbladder wall thickening and pericholecystic fluid consistent with acute cholecystitis. Abdomen is soft but there is some voluntary guarding on deep palpation. afebrile, hemodynamically stable. Plan: Discussed with patient and at length about patients imaging and symptoms consistent with acute cholecystitis. Discussed laparoscopic cholecystectomy pros and cons as well as procedure risks and expected recovery time and restrictions. Patient anxious about surgery/anesthesia as well as missing work. Discussed option of antibiotics and outpatient elective surgery in 4-6 weeks once gallbladder inflammation has subsided however discussed possibility of another acute episode and repeat ER visit/admission. After discussion, patient electing to proceed with surgery now. Informed consent obtained. Continue npo continue IV Zosyn Continue pain management as needed Discussed with Dr. Ramos who is to evaluate patient separately preoperatively. Admission and Anticipated Discharge Date Admission Date: June 11, 2023 Supervising Physician Co-Signing Physician Notes I have seen and examined the patient agree with the above assessment and plan. In brief, he has been having right upper quadrant abdominal pain since Sunday morning. Ultrasound with what appears to be acute cholecystitis. Tender to palpation in the right upper quadrant. We discussed the risks and benefits of a laparoscopic cholecystectomy with him. All his questions were answered, he is agreeable to proceed. Will take him to the operating room at the earliest convenience. Subjective feeling better today than yesterday, pain is improved as well as the nausea very anxious about surgery and missing work Physical Exam Constitutional: WD/WN, vitals as above cooperative and comfortable; no acute distress and not ill appearing Respiratory: normal respiratory effort, lungs clear to auscultation Cardiovascular: RRR, no murmur, no edema Gastrointestinal (Abdomen): Inspection/Auscultation: abdomen normal to inspection; abdomen not distended Percussion/Palpation: + abdomen tender (some tenderness in RUQ, negative Watson's) and abdomen soft; no guarding and abdomen not firm Skin: no rashes, warm and dry no jaundice Psychiatric: Orientation: alert and oriented x 3 Results & Data Vital Signs (Past 12 Hours) Vital Signs Temp Pulse Resp BP Pulse Ox O2 Del Method 06/12/23 07:12 36.8 C 103 H 16 147/85 H 92 Room Air 06/11/23 23:00 37.3 C 88 20 139/90 96 Room Air 06/11/23 23:00 37.3 C 88 20 139/90 96 Room Air Laboratory Results 06/12/23 06/11/23 06/11/23 Range/Units 05:51 19:31 17:18 WBC 13.05 H 15.84 H (4.8-10.8) K/ul RBC 4.93 5.76 (4.70-6.10) M/uL Hgb 14.9 17.5 (14.0-18.0) g/dl Hct 43.3 51.6 (42.0-52.0) % MCV 87.8 89.6 (80.0-100.0) fL MCH 30.2 30.4 (25.0-34.0) pg MCHC 34.4 33.9 (32.0-36.0) g/dL RDW Std Deviation 39.3 40.1 (36.4-46.3) fL RDW Coeff of Gracia 12.1 12.2 (11.5-14.5) % Plt Count 254 355 (130-400) K/uL MPV 9.6 10.0 (9.4-12.4) fL Immature Gran % (Auto) 0.6 0.7 % Neut % (Auto) 74.5 72.6 % Lymph % (Auto) 12.6 14.6 % [place] % (Auto) 9.7 10.2 % Eos % (Auto) 2.1 1.6 % Baso % (Auto) 0.5 0.3 % Neut # (Auto) 9.72 H 11.49 H (1.40-6.50) K/uL Lymph # (Auto) 1.65 2.31 (1.20-3.40) K/uL [place] # (Auto) 1.27 H 1.62 H (0.11-0.59) K/uL Eos # (Auto) 0.27 0.26 (0.00-0.50) K/uL Baso # (Auto) 0.06 0.05 (0.00-0.20) K/uL Immature Gran # (Auto) 0.08 0.11 (0.01-0.20) K/uL D-Dimer 850 H* (0-500) ug/L FEU Sodium 138 139 (136-145) mmol/L Potassium 3.9 3.9 (3.5-5.1) mmol/L Chloride 104 101 (98-107) mmol/L Carbon Dioxide 26 29 (21-32) mmol/L Anion Gap 8 9 (3-11) BUN 11 9 (6-23) mg/dl Creatinine 0.97 1.21 (0.6-1.4) mg/dl Est Cr Clr Drug Dosing 109.6 88.0 ml/min Est GFR ( Amer) 108.1 82.7 ml/min Est GFR (Non-Af Amer) 93.2 71.4 ml/min BUN/Creatinine Ratio 11.3 7.4 L (10-20) Glucose 101 H 108 H (70-99(Fasting)) mg/dl Calcium 8.6 10.0 (8.6-10.3) mg/dl Total Bilirubin 0.9 1.0 (0.2-1.0) mg/dl AST 14 15 (13-39) U/L ALT 14 19 (7-52) U/L Alkaline Phosphatase 50 65 (34-104) U/L Troponin I High Sens 9.1 (0-20) pg/ml Total Protein 6.4 7.9 (6.0-8.3) gm/dl Albumin 3.9 4.8 (3.4-5.0) gm/dl Globulin 2.5 3.1 (2.5-4.0) gm/dl Albumin/Globulin Ratio 1.6 1.5 (0.9-2) Lipase 14 21 (11-82) U/L Urine Color Yellow Urine Appearance Clear (Clear) Urine pH 6.5 (4.5-7.5) Ur Specific [place] 1.011 (1.000-1.030) Urine Protein Negative (Negative) Urine Glucose (UA) Negative (Negative) Urine Ketones Negative (Negative) Urine Blood Negative (Negative) Urine Nitrite Negative (Negative) Urine Bilirubin Negative (Negative) Urine Urobilinogen Negative (Negative) Ur Leukocyte Esterase Negative (Negative) Diagnostic Findings ABDOMINAL ULTRASOUND, RIGHT UPPER QUADRANT HISTORY: Acute quadrant abdominal pain RUQ pain, to R/O acute cholecystitis. COMPARISON: CT 06/11/2023 FINDINGS: Limited exam secondary to obscuring bowel gas. Pancreas: The pancreas is partially obscured by bowel gas. Liver: Unremarkable. Gallbladder: Cholelithiasis with stones measuring up to 1.1 cm. Probable trace layering sludge. Borderline gallbladder wall thickening measuring up to 3 mm. Mild pericholecystic edema. The sonographic Watson sign was reported as negative. CBD: 0.5 cm. Right kidney: No hydronephrosis. IMPRESSION: 1. Cholelithiasis with mild gallbladder wall thickening and pericholecystic edema is suspicious for acute cholecystitis. The sonographic Watson's sign however was reported as negative. 2. No biliary ductal dilation.
[2023-06-12] MEDS ORDERED: fentaNYL citrate PF 100 MCG/2 ML VIAL ONE ×2 (11:54→13:16)
[2023-06-12] MEDS ORDERED: MIDAZOLAM HCL 1 MG/ML 2ML VIAL ONE (11:54)
[2023-06-12] MEDS ORDERED: ROCURONIUM BROMIDE 10 MG/ML 5 ML VIAL IV ONE (12:02)
[2023-06-12] MEDS ORDERED: LIDOCAINE 2% 2 ML VIAL/AMP(20MG/ML) INFIL ONE (12:02)
[2023-06-12] MEDS ORDERED: GLYCOPYRROLATE 0.2 MG/ML VIAL ONE (12:02)
[2023-06-12] MEDS ORDERED: PROPOFOL IV EMULSION 10 MG/ML 20 ML VIAL IV ONE ×2 (12:02→13:45)
[2023-06-12] MEDS ORDERED: ONDANSETRON INJ 2 MG/ML 2 ML VIAL ONE (12:02)
[2023-06-12] MEDS ORDERED: DEXAMETHASONE SOD INJ 4 MG/ML VIAL ONE (12:02)
--- NOTE | 2023-06-12 12:38 | History & Physical Bridge Note ---
Date of Service June 12, 2023 History & Physical Bridge Note I have examined the patient, reviewed the History & Physical and in the interval since the performance of the History & Physical I have noted the following changes of clinical significance: no changes noted
[2023-06-12] MEDS ORDERED: diphenhydrAMINE 50 MG/ML VIAL ONE (13:04)
[2023-06-12] MEDS ORDERED: KETOROLAC 30 MG/ML VIAL ONE (13:09)
[2023-06-12] MEDS ORDERED: SUGAMMADEX SODIUM 200 MG/2 ML VIAL IV ONE (13:10)
[2023-06-12] MEDS ORDERED: DexMEDEtomidine HCL IV 100 MCG/ML VIAL IV ONE (13:11)
[2023-06-12] MEDS: BUPIVACAINE/EPINEPHRINE 0.5% MPF 1:200,000 30 ML VIAL ONE (13:58)
--- NOTE | 2023-06-12 14:00 | Post Operative Brief Note ---
Immediate Post Op Note v1 Date of Surgery June 12, 2023 Pre & Post Diagnosis Operation Date: 06/12/23 07:00 Pre-Op Diagnosis: Acute cholecystitis Post-Op Diagnosis: Acute cholecystitis I identified the patient and participated in the time-out.: Yes Procedure Operation Date: 06/12/23 07:00 Actual Procedures p Laparoscopic Cholecystectomy(Not Applicable) - Flash Ramos MD Surgeon Flash Ramos MD Grocery Store Associate DOMENIC Lui assisted with tissue retraction, camera op, closure Estimated Blood Loss 5 Findings Consistent with Post-Op Diagnosis Drains Juan-Landry Drain
--- NOTE | 2023-06-12 14:01 | Operative Report ---
Post Operative Report Pre & Post Diagnosis Operation Date: 06/12/23 07:00 Pre-Op Diagnosis: Acute cholecystitis Post-Op Diagnosis: Acute cholecystitis I identified the patient and participated in the time-out.: Yes Procedure Operation Date: 06/12/23 07:00 Actual Procedures p Laparoscopic Cholecystectomy(Not Applicable) - Flash Ramos MD Surgeon Flash Ramos MD Counselling Psychologist DOMENIC Lui assisted with tissue retraction, camera op, closure Estimated Blood Loss 5 Findings Consistent with Post-Op Diagnosis Severe gangrenous acute cholecystitis Specimens Gallbladder Drains 15 [place] round AMINAH drain Anesthesia Type General Complications No immediate complications Description of Procedure The patient was taken to the operating room, and placed supine on the operating table. A timeout was performed, perioperative antibiotics were administered, SCD boots were placed. After adequate anesthesia and analgesia was obtained, the abdomen was prepped and draped in the normal sterile fashion. Local anesthetic was injected into and around the proposed incision sites. An incision was made with a 15 blade scalpel in the supraumbilical region and carried down to the level of the fascia. The fascia was grasped with a trach hook, and a varies needle was used to enter the abdominal cavity. The abdomen was insufflated to a pressure of 15 mmHg, and a 11 mm trocar was placed in this location. A 10 mm, 30 degree laparoscope was placed into the abdominal cavity, and the abdomen was surveyed. The gallbladder was quite distended and taut, and demonstrated significant areas of gangrene. Two 5 mm trochars were placed along the right costal margin, and one 5 mm trocar was placed in the subxiphoid region under direct visualization. The gallbladder was drained with an 18-gauge aspiration needle. The gallbladder was grasped and retracted cephalad and laterally, exposing the triangle of [place]. Dissection began in the triangle with a combination of blunt dissection with the [place] dissector, and judicious use of the hook cautery. The cystic duct and cystic artery were dissected free circumferentially, and a critical view of safety was obtained. The cystic duct and cystic artery were clipped and transected, and the gallbladder was removed from the gallbladder fossa with the hook cautery. The camera was switched to a 5 mm, the gallbladder was placed in an Endo Catch bag, and removed via the supraumbilical port site. The camera was switched back to the 10 mm camera, and the abdomen was surveyed again. Hemostasis was checked and attended, and was excellent. A 15 [place] round AMINAH drain was placed through the lateral incision and was secured in place with 2-0 silk suture. The abdomen was copiously irrigated and suctioned free. Again hemostasis was checked and was excellent. All trochars were removed under direct visualization. The abdomen was desufflated. The fascia in the 11 mm port site was closed with a 0 Vicryl suture. The skin was closed with a running 4-0 Monocryl subcuticular stitch. Dermabond was applied. The patient tolerated the procedure without complication, and was transferred in stable condition to the PACU. All instrument, needle, and sponge counts were correct at the end of the case. My marketing assistant retail division was necessary throughout the procedure for tissue retraction, possible camera operation, and closure of the wounds. I understand that section 1842(b)(7)(D) of the Social Security act generally prohibits Medicare physician fee schedule payment for the services of assistants at surgery in teaching hospitals when qualified residents are available to furnish such services. I certify that the services for which payment is claimed were medically necessary and that no qualified resident was available to perform the services. I further understand that these services are subject to postpayment review by the Medicare carrier. I attest to the content of the Intraoperative Record and any orders documented therein. Any exceptions are noted below.
--- NOTE | 2023-06-12 15:17 | Anesthesiology Consultation ---
Date of Service June 12, 2023 Assessment & Plan Chart Review Chart Review: Acceptable Risk for Surgery and Patient NOT seen in Pre Admission Testing Consults Requested none ASA ASA2 Proposed Anesthesia Anesthesia Type: General Risk / Benefits Reviewed With: PT / POA / Parent / Guardian, Accepts Plan and Informed Consent Obtained History Surgery Operation Date: 06/12/23 07:00 Proposed Procedures p Laparoscopic Cholecystectomy - Flash Ramos MD Height/Weight Height: 5 ft 8 in Weight: 101 kg Allergies Allergy/AdvReac Type Severity Reaction Status Date / Time erythromycin base AdvReac Intermediate Diarrhea Verified 06/11/23 18:33 Medications Home Medications Medication Instructions Recorded Confirmed Last Taken Tylenol See Rx Instructions .Route 06/11/23 06/11/23 Unknown .COMPLEX PRN Pain Active Medications Generic Name Dose Route Start Last Admin Trade Name Freq PRN Reason Stop Dose Admin Lactated Ringer's 1,000 mls @ 100 mls/hr 06/11/23 23:07 06/12/23 09:57 Lr IV 07/11/23 23:06 100 mls/hr .Q10H GERRY Administration Piperacillin Sod/Tazobactam 100 mls @ 25 mls/hr 06/12/23 06:00 06/12/23 10:21 Sod 4.5 gm/ Dextrose IV 06/22/23 05:59 Infused Q8H GERRY Infusion Protocol NPO Date Last Intake of Fluids: 06/09/23 Time Last Intake of Fluids: 16:00 Date Last Intake of Solids: 06/09/23 Time Last Intake of Solids: 16:00 Exercise / Class Metabolic Activity II 4-5 Yardwork/Stairs/Walk up hill Past Anesthesia History No Hx of Anesthesia Complications and No Family Hx of Anesthesia Complications History of PONV No Hx of PONV and No Hx of Motion Sickness Social History Smoking Status: Never smoker Do You Dip or Chew Tobacco: No Hx Alcohol Use: No Hx Substance Use: No substance use type: does not use Physical Exam Vital Signs Last Vital Signs Temp 36.2 C L 06/12/23 14:23 Pulse 96 H 06/12/23 15:00 Resp 22 06/12/23 15:00 BP 114/75 06/12/23 15:00 Pulse Ox 93 06/12/23 15:00 O2 Del Method Oxymask 06/12/23 15:00 O2 Flow Rate 3 06/12/23 15:00 ENMT Mouth: no dentition abnormality Thyromental Distance: > or= 3.5 Finger Breadths Mallampati Class: II Neck normal visual inspection Respiratory normal respiratory effort Auscultation: lungs clear to auscultation bilaterally Cardiovascular Rate/Rhythm: regular rate and regular rhythm Psychiatric Orientation: alert Testing Laboratory Results 06/12/23 05:51 06/12/23 05:51 Urine Color Yellow 06/11/23 19:31 Urine Appearance Clear (Clear) 06/11/23 19:31 Urine pH 6.5 (4.5-7.5) 06/11/23 19:31 Ur Specific [place] 1.011 (1.000-1.030) 06/11/23 19:31 Urine Protein Negative (Negative) 06/11/23 19:31 Urine Glucose (UA) Negative (Negative) 06/11/23 19:31 Urine Ketones Negative (Negative) 06/11/23 19:31 Urine Nitrite Negative (Negative) 06/11/23 19:31 Ur Leukocyte Esterase Negative (Negative) 06/11/23 19:31
--- NOTE | 2023-06-12 15:17 | Anesthesiology Progress Note ---
Date of Service June 12, 2023 Anesthesia Post Procedure Vital Signs Vital Signs: Temp Pulse Pulse Pulse Resp BP BP 06/12/23 15:00 96 H 22 114/75 06/12/23 14:50 103 H 18 115/75 06/12/23 14:40 84 19 116/68 06/12/23 14:30 87 16 115/73 06/12/23 14:23 36.2 C L 83 18 126/75 06/12/23 12:09 146/96 H 06/12/23 12:01 37 C 100 H 18 136/110 H 06/12/23 07:12 36.8 C 103 H 16 147/85 H 06/11/23 23:00 37.3 C 88 20 139/90 06/11/23 23:00 37.3 C 88 20 139/90 06/11/23 22:02 92 H 06/11/23 20:00 96 H 20 06/11/23 18:53 101 H 20 06/11/23 18:33 94 H 06/11/23 18:05 102 H 23 138/98 06/11/23 17:11 36.9 C 118 H 18 143/98 H BP Pulse Ox O2 Del Method O2 Flow Rate 06/12/23 15:00 93 Oxymask 3 06/12/23 14:50 95 Oxymask 6 06/12/23 14:40 93 Oxymask 6 06/12/23 14:30 92 Oxymask 6 06/12/23 14:23 94 Oxymask 6 06/12/23 12:09 06/12/23 12:01 93 Room Air 06/12/23 07:12 92 Room Air 06/11/23 23:00 96 Room Air 06/11/23 23:00 96 Room Air 06/11/23 22:02 06/11/23 20:00 130/85 97 Room Air 06/11/23 18:53 139/78 97 Room Air 06/11/23 18:33 06/11/23 18:05 94 06/11/23 17:11 95 Room Air Pain Intensity Right Ribs: Pain Intensity: 2 Transfer of Care Handoff Completed per policy Notes Mental Status: alert / awake / arousable Patient Amnestic to Procedure: Yes Nausea / Vomiting: adequately controlled Pain: adequately controlled Airway Patency, RR, SpO2: stable & adequate BP & HR: stable & adequate Hydration State: stable & adequate Anesthetic Complications: no major complications apparent
[2023-06-12] MEDS ORDERED: KETOROLAC 30 MG/ML VIAL IV PRN (15:32)
[2023-06-12] MEDS ORDERED: PROMETHAZINE HCL 12.5 MG in SODIUM CHLORIDE 0.9% 50 ML IV PRN (15:32)
[2023-06-12] MEDS ORDERED: HYDROmorphone INJ 0.5 MG/0.5 ML SYR IV PRN (15:32)
[2023-06-12] MEDS ORDERED: diphenhydrAMINE Capsule 25 MG CAP PO PRN (15:32)
[2023-06-12] MEDS ORDERED: Nursing to Pharmacy Communication SCH (15:45)
[2023-06-13] MEDS: ENOXAPARIN INJ 40 MG/0.4 ML SYR SQ SCH (06:00)
[2023-06-13 07:33] LABS: Basophils # (auto) 0.03 K/uL (0.00-0.20); Basophils % (auto) 0.2 %; Eosinophils # (auto) 0.12 K/uL (0.00-0.50); Eosinophils % (auto) 0.9 %; Hematocrit (blood only) 41.3 % (42.0-52.0); Hemoglobin 13.9 g/dl (14.0-18.0); Immature Granulocytes # (auto) 0.06 K/uL (0.01-0.20); Immature Granulocytes % (auto) 0.5 %; Lymphocytes # (auto) 1.28 K/uL (1.20-3.40); Mean Corpuscular Hemoglobin 30.2 pg (25.0-34.0); Mean Corpuscular Hgb Conc 33.7 g/dL (32.0-36.0); Mean Corpuscular Volume 89.8 fL (80.0-100.0); Mean Platelet Volume 9.9 fL (9.4-12.4); Monocytes # (auto) 0.89 K/uL (0.11-0.59); Neutrophils # (auto) 10.39 K/uL (1.40-6.50); Neutrophils % (auto) 81.4 %; Platelet Count 255 K/uL (130-400); RDW Coefficient of Variation 11.9 % (11.5-14.5); RDW Standard Deviation 38.7 fL (36.4-46.3); White Blood Count 12.77 K/ul (4.8-10.8)
[2023-06-13] MEDS ORDERED: IBUPROFEN 600 MG TAB PO PRN (10:10)
[2023-06-13] MEDS: ACETAMINOPHEN 325 MG TAB PO PRN (10:50)
--- NOTE | 2023-06-13 15:03 | Discharge Summary ---
Date of Service June 13, 2023 Principal Diagnosis Acute calculous cholecystitis Discharge Exam Constitutional WD/WN, vitals as above cooperative and comfortable; no acute distress and not ill appearing Respiratory normal respiratory effort; no respiratory distress and no labored breathing Gastrointestinal (Abdomen) Inspection/Auscultation: abdomen normal to inspection and + abdominal surgical drain present (minimal serosanguineous); abdomen not distended Percussion/Palpation: + abdomen tender (mild at incision sites) and abdomen soft; no guarding, abdomen not rigid and abdomen not firm Skin no rashes, warm and dry no jaundice Psychiatric A+Ox3, euthymic affect Discharge Data Allergies Allergy/AdvReac Type Severity Reaction Status Date / Time erythromycin base AdvReac Intermediate Diarrhea Verified 06/11/23 18:33 Consultations 06/11/23 21:48 Consult General Surgery Stat Procedures Performed Operation Date: 06/12/23 07:00 Actual Procedures p Laparoscopic Cholecystectomy(Not Applicable) - Flash Ramos MD Ordered Studies 06/11/23 18:45 CT abd pelvis IV con only Stat CT angio chest PE protocol Stat 06/12/23 08:10 gallbladder Routine Hospital Course (1) Acute cholecystitis: Patient admitted to hospital from emergency department and started on IV antibiotics with pain management as needed. He was taken to operating room for laparoscopic cholecystectomy on 06/12/2023. He was found to have severe acute gangrenous cholecystitis. Patient tolerated procedure without difficulty. AMINAH drain was placed. Patients diet was advanced as tolerated postoperatively in which he tolerated. Patient was discharged home on POD # 1 in stable condition. Total Time Total Time Spent Total Time Spent (In Minutes): 30 minutes Total Time Includes: Examination of the Patient, Discharge Planning and Medica tion Reconciliation Discharge Plan Discharge Items Patient Disposition: Home - Self-Care Reason For Visit: VOMITING, LOWER ABDOMINAL PAIN Discharge Diagnosis: Acute gangrenous cholecystitis Activity: Per Instructions section Non-emergency contact: Surgeon Call non-emergency contact if: you have any medication questions, your pain is not controlled, your pain is worsening, your pain is concerning for you, you have a fever, your temperature is above 101, your wound has increased redness, your wound has increased drainage and your wound pain has increased Follow-up/Referrals: Flash Ramos MD [Physician] - 06/15/23 10:00 am (nurse visit for drain removal) PCP,NO [Primary Care Provider] - Diet: Regular Addtl Attending Provider Instructions: Post-Surgical ~Discharge Instructions Activity Recommendations: - lifting limitation: (20 pounds for 2 weeks), - exercise/sex/sports limit: (nonstrenuous for 2 weeks), - driving or machine use limit: (none for 1 week or until pain free and no longer taking narcotic pain medication), - Shower/bathe limit: (may shower beginning t) Diet: - Resume previous diet SPECIAL CARE INSTRUCTIONS: - May shower in 24 hours. Let water run over area and pat dry. - Leave steri strips on for one week. - Call the surgeon's office with any questions or concerns - - (ex. temperature higher than 101 degrees F, excessive bleeding or pain). MEDICATIONS: - Resume previous medications unless instructed otherwise by your surgeon. - Ibuprofen 600 mg every 6 hours with food - Percocet 1 every 4 hours, as needed for pain FOLLOW UP VISIT: - If not already scheduled, please call the office to schedule a two week follow-up appointment. Office number Pending Studies at Discharge: Yes (gallbladder pathology, will be reviewed at postop visit) Stand-Alone Forms: [employer], Work/School Release, Smoking Ce ssation Medications and DC Order Prescriptions: No Action Tylenol See Rx Instructions .ROUTE .COMPLEX PRN (Reason: Pain) Rx Instructions: OTC, as directed Marielena/Other Patient Handouts: Juan Landry Drain Tube Dc, Post Op Drain Emptying Steps Admission Data Admit Date/Time: 06/11/23 22:01 Attending Provider: Marito Baxter Admit Provider: Marito Baxter Primary Care Provider: PCP,NO Other Providers: Marito Baxter
== END 2023-06-13 16:09 | disposition home or self-care (01) ==
LOC: ED 16:52 → INTOOBSV 22:01 → 3W 22:01